=== PATIENT | male | born 1995 | race African-American/Black ===

== ENCOUNTER 2021-07-05 10:57 | Emergency (ER) | payer OTHER ==
[~2021-07-05] VITALS: Ht 188 cm; Wt 77.3 kg
[2021-07-05] MEDS ORDERED: inhaler IH (11:01)
[2021-07-05] MEDS ORDERED: AUD NEB (13:41)
[2021-07-05] MEDS ORDERED: ALBU8.5H8 IH (13:41)
[2021-07-05 13:44] VITALS: BP 146/99
== END 2021-07-05 13:49 | disposition home or self-care (01) ==
LOC: EMS 11:03
DX: J45.909 Unspecified asthma, uncomplicated (principal); F12.90 Cannabis use, unspecified, uncomplicated; Z76.0 Encounter for issue of repeat prescription
CPT/HCPCS: 99281; Z7502